=== PATIENT | female | born 1990 | race Caucasian/White ===

== ENCOUNTER → 2016-12-21 | Outpatient (CLI) | payer BC ==
[2016-12-21 16:46] LABS: BASOPHILS # (AUTO) 0.02 10*3/UL; BASOPHILS % (AUTO) 0.2 % (0-1); EOSINOPHILS % (AUTO) 0.9 % (0-8); HEMATOCRIT 41.9 % (37.0-47.0); HEMOGLOBIN 13.3 g/dL (12.0-16.0); LYMPHOCYTES # (AUTO) 2.93 10*3/uL; MEAN CORPUSCULAR HGB CONC 31.7 g/dL (33-37); MEAN PLATELET VOLUME 9.9 FL (7.4-12.2); MONOCYTES % (AUTO) 10.2 % (5-15); NEUTROPHILS # (AUTO) 6.62 10*3/UL; NEUTROPHILS % (AUTO) 61.3 % (50-80); RED BLOOD COUNT 4.93 10^6/uL (4.20-5.40)
[2016-12-21 16:49] LABS: PLATELET MORPHOLOGY COMMENT NORMAL MORPHOLOGY (NORM); RBC MORPHOLOGY COMMENT NORMAL MORPHOLOGY (NORM); WBC MORPHOLOGY COMMENT NORMAL MORPHOLOGY (NORM)
[2016-12-21 17:04] LABS: BLOOD UREA NITROGEN 13 mg/dL (7-22); BUN/CREATININE RATIO 16.25 (6-20); CALCIUM 9.5 mg/dL (8.7-10.7); EST GLOMERULAR FILTRATION > 60 (>60 ml/min/1.73m(2)); SERUM ALBUMIN 4.4 g/dL (3.5-4.8)
== END ==
LOC: MOB LAB 16:05
PROVIDERS: ATTEND Physician Assistant Medical
DX: K62.5 Hemorrhage of anus and rectum (principal)
CPT/HCPCS: 36415; 80053; 85025

== ENCOUNTER 2016-12-27 09:30 | Day surgery (SDC) | payer BC ==
[~2016-12-27 09:30] MED LIST: LIDOCAINE W/ SODIUM BICARB 0.5 ML SYR ONE; Lactated Ringers 1,000 ML PRIMARY IV ONE; MIDAZOLAM 5 MG/1 ML ONE; fentaNYL Inj 100 MCG/2 ML VIAL ONE
[2016-12-27 09:47] LABS: URINE SPECIFIC GRAVITY - MAN 1.021
[2016-12-27] MEDS ORDERED: FAMOTIDINE 20 MG/2 ML VIAL IVP ONE (10:26)
--- NOTE | 2016-12-27 11:16 | GEN.OPNOTE ---
Colonoscopy Procedure Note Surgery Date: 12/27/16 Preoperative Diagnosis: Blood in stool Postoperative Diagnosis: Normal-appearing colon Procedure: Colonoscopy Surgeon: Hussein Barrett MD Anesthesia Provider: Fidel Lugo CRNA Anesthesia Type: MAC Indications: Patient has rectal bleeding Findings: Prep : Excellent Cecum : Scope was advanced all way to the cecum. Ileocecal valve clearly identified, along with the appendiceal orifice Ascending : Ascending colon was within normal limits no polyps tumors or cancers Transverse : Transverse colon had no polyps tumors or cancers Sigmoid : Sigmoid colon and descending colon free from disease Rectum : Rectum free from disease Digital Rectal Exam : A lubricated flexible colonoscope was inserted and passed to the blind end of the cecum. Additional Details: Patient is next routine colonoscopy at age 49
[2016-12-27 11:46] VITALS: RESP 18
[2016-12-27 11:50] VITALS: TEMP 97.5
[2016-12-27] MEDS ORDERED: Lactated Ringers 1,000 ML PRIMARY IV ONE (15:15)
== END 2016-12-27 11:39 | disposition home or self-care (01) ==
LOC: SDSC 09:30
PROVIDERS: ATTEND Surgery
DX: K62.5 Hemorrhage of anus and rectum (principal)
CPT/HCPCS: 45378; 84703; J2704; J3010; J2250; J7120

== ENCOUNTER 2017-01-13 10:24 | Day surgery (SDC) | payer BC ==
[~2017-01-13 10:24] MED LIST changes: -MIDAZOLAM 5 MG/1 ML ONE; +ceFAZolin Inj 2gm (Premix) 0 ML IV ONE; -fentaNYL Inj 100 MCG/2 ML VIAL ONE
[2017-01-13] MEDS ORDERED: ceFAZolin Inj 3 GM in Sodium Chloride 0.9% 100 ML IV ONE (11:00)
[2017-01-13] MEDS ORDERED: ONDANSETRON 4 MG/2 ML VIAL ONE (11:10)
[2017-01-13] MEDS ORDERED: PANTOPRAZOLE IV 40 MG VIAL ONE (11:11)
[2017-01-13] MEDS ORDERED: DEXAMETHASONE PF 10 MG/1 ML VIAL ONE (11:11)
[2017-01-13] MEDS ORDERED: LIDOCAINE 2%/ EPI 1:200,000 - 20 ML VIAL ONE (11:23)
[2017-01-13] MEDS ORDERED: MIDAZOLAM 5 MG/1 ML ONE ×2 (11:23→11:53)
[2017-01-13] MEDS ORDERED: BUPivacaine Inj 0.5% PF (5mg/ml) 30ml vial ONE (11:23)
[2017-01-13] MEDS ORDERED: fentaNYL Inj 100 MCG/2 ML VIAL ONE (11:23)
[2017-01-13] MEDS ORDERED: DEXAMETHASONE SOD PHOSPHATE 4 MG/1 ML VIAL ONE (11:23)
[2017-01-13] MEDS ORDERED: LIDOCAINE MPF 2% - 5 ML (20 MG/1 ML) ONE (11:53)
[2017-01-13 12:08] VITALS: RESP 16
[2017-01-13] MEDS ORDERED: Ropivacaine 0.2% VIAL 20 ML ONE (12:23)
[2017-01-13] MEDS ORDERED: EPINEPHrine Inj (1:1,000) 30mg/30ml vial ONE (12:33)
[2017-01-13] MEDS ORDERED: Lactated Ringers 1,000 ML PRIMARY IV SCH ×2 (14:00→15:45)
[2017-01-13] MEDS ORDERED: NORMAL SALINE 10 ML SYRINGE FLUSH IVP PRN ×2 (14:00→15:37)
[2017-01-13] MEDS ORDERED: Prochlorperazine Edisylate Inj 10mg/2ml vial IVP PRN ×2 (14:00→16:17)
[2017-01-13] MEDS ORDERED: HYDROmorphone 2 MG/1 ML IVP PRN (14:00)
--- NOTE | 2017-01-13 14:03 | CRNA.PROCE ---
Nerve Block Documentation - - Type of Nerve Block Used: Right Interscalene Block Position for Nerve Block: Supine Moniters Used During Block: EKG, SPO2, NIBP Oxygen Sumpplented: Yes Sedation Used - Enter Amount in Comment Field: Midazolam (mg): Yes (5mg), Fentanyl (mcg): Yes (50mcg) Skin Prep Used: ChloroPrep Draped: No Technique: Nerve Stimulator Nerve Block Needle Used: 40 mm ProBlk II Stimulation Hz: 2 Stimulation Staring mA: 1.2 Stimulation Ending mA: 0.46 Local Anesthetic - Enter Amt in Comment Field: 0.5 % Bupivacaine Plain (mL): Yes (20ml), 2 % Xylocaine with Epinephrine 1:200,000 (mL): Yes (20ml) Additives to Nerve Blocks: Dexamethasone (mL): Yes (8mg(2ml))
[2017-01-13] MEDS ORDERED: Lactated Ringers 1,000 ML PRIMARY IV ONE (14:05)
[2017-01-13] MEDS ORDERED: KETOROLAC 30 MG/1 ML VIAL ONE (15:17)
[2017-01-13] MEDS ORDERED: ONDANSETRON 4 MG/2 ML VIAL IVP PRN (15:37)
[2017-01-13] MEDS ORDERED: BISACODYL 5 MG TABLET PO PRN (15:37)
[2017-01-13] MEDS ORDERED: IBUPROFEN 400 MG TABLET PO PRN (15:37)
[2017-01-13] MEDS ORDERED: diphenhydrAMINE 25 MG CAPSULE PO PRN (15:37)
[2017-01-13] MEDS ORDERED: Prochlorperazine Tab 10 MG TAB PO PRN (15:37)
[2017-01-13] MEDS ORDERED: ACETAMINOPHEN 325 MG TABLET PO PRN (15:37)
[2017-01-13] MEDS ORDERED: BISACODYL 10 MG SUPPOSITORY RECTAL PRN (15:37)
[2017-01-13] MEDS ORDERED: Ondansetron ODT Tab 8 MG TAB PO PRN (15:37)
[2017-01-13] MEDS ORDERED: MORPHINE SULFATE 2 MG/1 ML IVP PRN (15:37)
[2017-01-13] MEDS ORDERED: oxyCODONE/APAP 7.5/325 Tab 1 TAB TAB PO PRN (15:37)
[2017-01-13] MEDS ORDERED: CALCIUM CARBONATE 500 MG (TUMS) CHEWABLE TABLET PO PRN (15:37)
[2017-01-13] MEDS ORDERED: MAG HYDROX/AL HYDROX/SIMETH 30 ML SUSP PO PRN (15:37)
[2017-01-13] MEDS ORDERED: HYDROmorphone 2 MG/1 ML ONE (15:59)
[2017-01-13 18:03] VITALS: TEMP 97.2
--- NOTE | 2017-01-17 09:01 | OPS SHOULD ---
Diagnosis : Right GUERA/SLAP/Biceps Tenodesis Referral Reason: Instruction in Activities of Daily Living/Shoulder Cryo Cuff O: The patient was instructed in activities of daily living including dressing and bathing as well as shoulder do's and don'ts. The patient was also issued a cryo cuff for the right shoulder and instructed in its proper use and care. P: No further therapy is indicated at this time. The patient will begin outpatient physical therapy. SHAYAN
== END 2017-01-13 17:55 | disposition home or self-care (01) ==
LOC: SDSC 10:24
PROVIDERS: ATTEND Orthopaedic Surgery
DX: S43.431A Superior glenoid labrum lesion of right shoulder, initial encounter (principal); M75.81 Other shoulder lesions, right shoulder
CPT/HCPCS: 23430; 29823; 29826; 84703; J0171; J1885; J2704; J2795; J3010; 97535; J0690; J1100; J1170; J2001; J2250; J2405; J3490; J7050; J7120

== ENCOUNTER 2017-01-13 21:00 | Emergency (ER) | payer BC ==
[2017-01-13 21:22] VITALS: RESP 20; TEMP 96.9
[2017-01-13] MEDS ORDERED: ASPIRIN 81 MG (BABY) CHEWABLE TABLET PO ONE (21:28)
--- NOTE | 2017-01-13 21:31 | EKG ---
[address] [address] Measurements Intervals [place] Rate: 77 P: 21 NV: 140 QRS: 67 QRSD: 102 T: 46 QT: 385 QTc: 417 Interpretive Statements SINUS RHYTHM WITH SINUS ARRHYTHMIA INTERPRETATION BASED ON A DEFAULT AGE OF 40 YEARS Compared to ECG 05/18/2014 14:13:59 No significant changes Electronically Signed On 01-14-17 09:57:22 MDT by Parminder Faria MD [email or web address]
[2017-01-13] MEDS: NORMAL SALINE 10 ML SYRINGE FLUSH IVP PRN ×2 (21:45→22:50)
[2017-01-13 21:50] LABS: BASOPHILS # (AUTO) 0 10*3/UL; BASOPHILS % (AUTO) 0 % (0-1); EOSINOPHILS # (AUTO) 0 10*3/UL; EOSINOPHILS % (AUTO) 0 % (0-8); HEMATOCRIT 39.2 % (37.0-47.0); HEMOGLOBIN 12.7 g/dL (12.0-16.0); LYMPHOCYTES # (AUTO) 0.51 10*3/uL; MEAN CORPUSCULAR HEMOGLOBIN 27.5 PG (27-31); MEAN CORPUSCULAR HGB CONC 32.4 g/dL (33-37); MEAN PLATELET VOLUME 10.2 FL (7.4-12.2); MONOCYTES # (AUTO) 0.06 10*3/UL (0.3-0.8); MONOCYTES % (AUTO) 0.6 % (5-15); NEUTROPHILS # (AUTO) 8.95 10*3/UL; NEUTROPHILS % (AUTO) 93.9 % (50-80); RED BLOOD COUNT 4.61 10^6/uL (4.20-5.40)
[2017-01-13 22:00] LABS: BLOOD UREA NITROGEN 12 mg/dL (7-22); BUN/CREATININE RATIO 17.14 (6-20); CALCIUM 9.1 mg/dL (8.7-10.7); EST GLOMERULAR FILTRATION > 60 (>60 ml/min/1.73m(2)); SERUM ALBUMIN 4.2 g/dL (3.5-4.8)
[2017-01-13 22:07] LABS: PLATELET MORPHOLOGY COMMENT NORMAL MORPHOLOGY (NORM); RBC MORPHOLOGY COMMENT NORMAL MORPHOLOGY (NORM); WBC MORPHOLOGY COMMENT NORMAL MORPHOLOGY (NORM)
[2017-01-13 22:12] LABS: CREATINE KINASE MB 2.94 NG/ML (0.00-5.00); TROPONIN I 0.012 ng/mL (< 0.040)
[2017-01-13] MEDS ORDERED: ONDANSETRON 4 MG/2 ML VIAL IVP ONE (22:47)
[2017-01-13] MEDS ORDERED: IBUPROFEN 800 MG TABLET PO ONE (23:07)
--- NOTE | 2017-01-13 23:36 | DI ---
HISTORY: Recent surgery. Elevated d-dimer. Could not raise arm or remove from a sling. COMPARISON: None available. TECHNIQUE: CT Angiogram of the chest was performed and the images were sent for interpretation. FINDINGS: Patient body habitus and positioning of the patient with arms at sides creates artifact th at limits evaluation of fine anatomic detail. No main pulmonary emboli. Contrast bolus timing limits evaluation for more distal emboli. No pneumo thorax, pleural effusion, or area of consolidation. Atelectasis and early airspace disease is noted in the right lower lobe with right lung volume loss and elevation of the right hemidiaphragm. Airway s are patent with no endobronchial lesion. No evidence of great vessel injury, dissection, or aneury sm. Heart size is normal with no pericardial effusion. No mediastinal or hilar lymphadenopathy. Th e thyroid exhibits normal CT morphology. Limited evaluation of the upper abdomen reveals diffuse hypoenhancement of the liver relative to the spleen, a finding commonly associated with hepatic steatosis. No focal lesion is present. No acute osseous abnormality or aggressive osseous lesion. There is multilevel degenerative disc disease. Ga s is noted in the soft tissues surrounding the right shoulder, an expected finding in the immediate p ostoperative time frame. IMPRESSION: 1. Patient body habitus and positioning of the patient with arms at sides creates artifact that limit s evaluation of fine anatomic detail. 2. No main pulmonary emboli. Contrast bolus timing limits evaluation for more distal emboli. 3. Atelectasis and early airspace disease is noted in the right lower lobe with right lung volume los s and elevation of the right hemidiaphragm. Follow-up to resolution is recommended. 4. Diffuse hypoenhancement of the liver relative to the spleen, a finding commonly associated with he patic steatosis. 5. Multilevel degenerative disc disease. 6. Gas is noted in the soft tissues surrounding the right shoulder, an expected finding in the immedi ate postoperative time frame. NOTIFICATION: The above findings were phoned to Raul Park in the ER Department on 01/14/2017 at 01: 42 AM EST.
--- NOTE | 2017-01-14 00:09 | PDOC ---
Chest Pain HPI - General Chief Complaint: Chest Pain Stated Complaint: CHEST PAIN AND SHORT OF BREATH Date Seen by Provider: 01/13/17 Time Seen by Provider: 21:10 Source: Patient Exam Limitations: POSITIVE: No limitations Treatment Prior to Arrival: REPORTS: None Nurse's Notes Reviewed & Considered: Yes - History of Present Illness Initial Comments: The patient is a 26-year-old female. Earlier today the patient had surgery to her right shoulder, reportedly for a bicipital tendon injury. 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 Patient states she has a history of bipolar disorder, asthma, and anxiety. She takes albuterol inhaler as necessary. She also was prescribed Percocet postoperatively. No paresthesia or sensory or motor symptoms. No cough. No fevers. Her discomfort is mainly midsternal. Body Location Affected: REPORTS: Chest Timing: REPORTS: Abrupt Duration: 1 hour Severity: Mild Persistent/Worse since (date): 01/13/17 Persistent/Worse since (time): 20:00 Context: REPORTS: Rest Quality: REPORTS: Other (Vague discomfort; unpleasant sensation) Radiation: REPORTS: None Associated Symptoms: REPORTS: Shortness of Breath. DENIES: Nausea, Vomiting, Diaphoresis, Hurts to Breathe, Palpitations, Productive Cough (blood), Productive Cough (sputum), Weakness, Dizziness Modifying Factors: improves with: None Reported Similar Symptoms Previously: No Recently seen/treated/hospitalized: Yes (recent right shoulder surgery as above) Any Prior Injuries Related to Current Complaint?: No - Patient Home Medications Home Medications: Home Medications Omeprazole [Prilosec] 1 cap PO BID #60 cap 09/15/15 Fexofenadine/Pseudoephedrine [[place]-D 24 Hour Tablet] 1 tab PO DAILY tab Fluticasone Propionate [Flonase Allergy Relief] 2 spr RAFFY DAILY spr 07/01/16 Albuterol Sulfate [Proair Hfa] 1 - 2 puff INH Q4-6H #1 inhaler 12/09/16 Levonorgestrel-Ethin Estradiol [[place]-28 Tablet] 1 tab PO DAILY #1 pkg Lamotrigine 150 mg PO DAILY #90 tab 12/30/16 Fluoxetine HCl [Prozac] 1 cap PO DAILY #90 cap 01/06/17 Ibuprofen [Motrin] 400 mg PO Q6H PRN #120 tab 01/13/17 oxyCODONE/APAP 7.5/325 Tab [Percocet 7.5/325 Tab] 1 - 2 tab PO Q4H PRN #50 tab 01/13/17 - Patient Allergies Allergies/Adverse Reactions: Allergies Allergy/AdvReac Type Severity Reaction Status Date / Time No Known Allergies Allergy Verified 01/13/17 21:13 Past Medical History - heen HEENT History: Denies History Additional HEENT History: GLASSES Cardiovascular History: Denies History Respiratory History: Asthma, Snoring Gastrointestinal History: GERD Genitourinary History: Recurrent UTI Endocrine History: Denies History Musculoskeletal History: Arthritis, Back Injury Prosthesis or Implant: No Neurological History: Migraines Additional Neurological History: COUPLE MONTHS AGO ALONG WITH HER PERIOD Blood Disorders: Denies History Psychiatric History: Depression, Bi Polar Disorder, Anxiety Disorders History of Sexually Transmitted Diseases: No Female Reproductive History: Denies History Obstetrical History: Denies History Cancer History: Denies History In Past Year Been Physically Harmed or Verbally Threatened: No History of MDRO: No History of Other Communicable Diseases: No Tobacco Use: Never Smoker Alcohol Use: Occasionally Substance Use Type: None Previous Surgical History: Yes Type / Date of Surgery: RT KNEE SCOPE. RT SHOULDER SCOPE. RIGHT NASAL CYST REMOVED. COLONOSCOPY Anesthesia Reactions: Yes (OVER SEDATION AND EMESIS) Malignant Hyperthermia: No Significant Family History: Asthma Past Medical History Reviewed: Reviewed - Changes Made ROS - Limitations ROS Limitations: No Limitations Constitution: REPORTS: Denies Symptoms Cardiovascular: REPORTS: Chest Pain Neurological: REPORTS: Denies Neuro Symptoms Gastrointestinal: REPORTS: Denies GI Symptoms Endocrine: REPORTS: Denies Symptoms Musculoskeletal: REPORTS: Denies MS Symptoms Genitourinary: REPORTS: Denies Symptoms Eyes: REPORTS: Denies Symptoms ENT: REPORTS: Denies Symptoms Skin: REPORTS: Denies Skin Symptoms Lympathic: REPORTS: Denies Lympathic Symptoms Immunologic: POSITIVE: Denies Symptoms Psychiatric: POSITIVE: Denies Psych Symptoms Chest Pain PE - General Appearance General Appearance: REPORTS: Alert, Cooperative, No Acute Distress, No Evidence of Trauma - HEENT HEENT: POSITIVE: Head Inspection Nml, Eyes Inspection Nml, Ears Inspection Nml, Nose Inspection Nml, Oral/Dental Inspect. Nml, Pharynx Inspect. Nml, PERRL, EOMI - Neck Neck: REPORTS: Normal Inspection, No Carotid Bruit - Respiratory Respiratory: REPORTS: No Respiratory Distress, Breath Sounds Normal. DENIES: Chest Non-Tender (Mild discomfort on firm palpation over sternal area) - Cardiovascular Cardiovascular: REPORTS: Regular Rate and Rhythm, Heart Sounds Normal, Equal Pulses, Strong Pulses, No Murmur, No Gallop, No Friction Rub, No JVD Peripheral Pulses: Radial (R): 2+, Radial (L): 2+ - Abdomen Abdomen: Soft: (All Quadrants), Normal Bowel Sounds: (All Quadrants), Denies Tenderness: (All Quadrants), No Splenomegaly: (All Quadrants), No Hepatomegaly: (All Quadrants), No Guarding: (All Quadrants), No Rebound: (All Quadrants), No Palpable Pulse: (All Quadrants), No Palpabale Mass: (All Quadrants), No Distention: (All Quadrants), No Rigidity: (All Quadrants) - Skin Skin: REPORTS: Intact, Normal For Race, Warm, Dry, No Rash - Extremities Extremity: Non-Tender: (All Extremities), Normal ROM: (All Extremities), Normal Inspection: (All Extremities) Additional Extremities Details: Right shoulder mobilized in an abductor pillow. 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 CTA of chest shows no pulmonary emboli Lab Results Reviewed: Yes (d-dimer elevated at 0.71) Lab Results:: Laboratory Results 01/13/17 Range/Units 21:45 WBC 9.53 (4.8-10.8) 10^3/uL RBC 4.61 (4.20-5.40) 10^6/uL Hgb 12.7 (12.0-16.0) g/dL Hct 39.2 (37.0-47.0) % MCV 85.0 (81-99) FL MCH 27.5 (27-31) PG MCHC 32.4 L (33-37) g/dL RDW Std Deviation 41.8 (39-50) fL RDW Coeff of Saman 13.6 (11.5-14.5) % Plt Count 296 (140-350) 10*3/uL MPV 10.2 (7.4-12.2) FL Immature Gran % (Auto) 0.1 (0-5) % Neut % (Auto) 93.9 H (50-80) % Lymph % (Auto) 5.4 L (10-50) % [place] % (Auto) 0.6 L (5-15) % Eos % (Auto) 0 (0-8) % Baso % (Auto) 0 (0-1) % Immature Gran # (Auto) 0.01 10*3/UL Neut # (Auto) 8.95 10*3/UL Lymph # (Auto) 0.51 10*3/uL [place] # (Auto) 0.06 L (0.3-0.8) 10*3/UL Eos # (Auto) 0 10*3/UL Baso # (Auto) 0 10*3/UL WBC Morphology Comment Normal morphology (NORM) Plt Morphology Comment Normal morphology (NORM) RBC Morph Comment Normal morphology (NORM) D-Dimer 0.71 H (0.00-0.59) mg/L Sodium 138 (135-145) meq/L Potassium 4.7 (3.8-5.2) meq/L Chloride 106 (98-112) meq/L Carbon Dioxide 21 L (23-33) meq/L Anion Gap 11 (5-20) BUN 12 (7-22) mg/dL Creatinine 0.7 (0.50-1.20) mg/dL Estimated GFR > 60 (>60 ml/min/1.73m(2)) BUN/Creatinine Ratio 17.14 (6-20) Glucose 178 H (78-110) mg/dL Calculated Osmolality 289.0 (267-292) mOsm/kg Calcium 9.1 (8.7-10.7) mg/dL Total Bilirubin 0.5 (0.3-1.2) mg/dL AST 21 (8-39) IU/L ALT 20 (9-52) IU/L Alkaline Phosphatase 55 (38-126) IU/L CK-MB (CK-2) 2.94 (0.00-5.00) NG/ML Troponin I 0.012 (< 0.040) ng/mL Total Protein 7.6 (6.1-8.0) g/dL Albumin 4.2 (3.5-4.8) g/dL Globulin 3.4 (2.50-4.10) g/dL Albumin/Globulin Ratio 1.20 L (1.3-2.0) mg/g EKG Interpreted/Reviewed By Me:: Yes (normal) EKG Interpretation:: POSITIVE: Normal Sinus Rhythm, Normal Rate, Normal Intervals, Normal [employer], Normal QRS, Normal ST/T - Patient's Progress Pain Medication Addressed: POSITIVE: Yes (Recommended Tylenol) School/Work Release Addressed: POSITIVE: Not Applicable Re-Examine Time: 23:57 Re-Examine Comment: Patient rested comfortably while in the emergency room. Discomfort is mild. Condition essentially unchanged Status: POSITIVE: Unchanged, Re-Examined Quality Measure Initiative: CP/AMI: POSITIVE: EKG, ASA - Consult Counseled: POSITIVE: Patient, Family, RE: Lab Results, RE: Radiology Results, RE : DX, RE: Need for F/U Patient Care Time - Estimated PCT Patient Care Time (In Minutes): 50 Vital Signs - Recent Vital Signs Vital Signs: Vital Signs (Last 8 hours) Temp Pulse Resp BP Pulse Ox 01/13/17 21:00 96.9 F 78 20 125/69 93 - VS Reviewed Vital Signs Reviewed: Yes Discharge Clinical Impression: Chest wall pain Discharge Disposition: Discharged to Home Condition: Stable Patient Instructions Given at Discharge: Noncardiac Chest Pain (ED) Additional Instructions: I'm not completely sure what the source of your chest discomfort is. However, I do not think it is coming from your heart or lungs and it is most likely coming from your chest wall. I believe you're going to be fine. Take deep breaths hourly to fully expand your lungs, as CT scan of your chest does show some loss of volume in your right lung, probably secondary to your anesthesia. Advil or Tylenol for discomfort. Return here anytime if condition worsens in any way whatsoever. Follow-up with your orthopedist as he has directed. Also follow-up with your primary care provider. Follow Up With: NAVNEET BISWAS [Primary Care Provider] - (Instructions as above. Return here anytime if condition worsens in any way.)
--- NOTE | 2017-01-14 08:53 | DI ---
AP /LATERAL CHEST X-RAY, 01/13/2017 9:29 PM : Clinical History: Chest pain. Previous Exam: 05/18/2014. On both views the patient took a very shallow inspiration. There is no acute soft tissue or bony abno rmality. Heart size is normal. Lungs are clear. Mediastinal structures are normal. There are no pulmo nary nodules. Reading: Normal chest x-ray for this shallow inspiratory effort. There has been no change.
== END 2017-01-14 00:15 | disposition home or self-care (01) ==
LOC: ER 21:00
DX: R07.89 Other chest pain (principal); Z98.1 Arthrodesis status
CPT/HCPCS: 71020; 71275; 80053; 82553; 84484; 85025; 85379; 93005; 93010; 96374; 99284; J2405